=== PATIENT | female | born 1950 | race Caucasian/White ===

== ENCOUNTER → 2017-02-28 | Outpatient (CLI) | payer BC ==
[~2017-02-28] MED LIST: ALIGN; B-12500 MCG PO; CALCIUM600 MG PO; CYMBALTA 60MG60 MG PO; GLUMETZA1000 MG PO; K-99595 MG PO; K-DUR20 MEQ PO; LEVAQUIN 5500 MG/TA1 PO; LEVOXYL0.1 MG PO; LYRICA 150MG C150 MG PO; LYRICA225 MG PO; MAXZIDE-25MG TA1 TAB PO; PREDNISONE20 MG PO; PROTONIX 40MG T40 MG PO; PYRIDIUM200 M1 PO; REQUIP XL4 MG PO; REQUIP4 MG PO; TESSALON PERLE200 MG PO; ZITHROMAX 250M250 MG PO; ZOCOR 40MG40 MG PO
== END ==
LOC: MC.RAD 08:15
DX: Z12.31 Encounter for screening mammogram for malignant neoplasm of breast (principal)

== ENCOUNTER 2017-05-09 09:11 | Inpatient (IN) | payer MEDICARE, OTHER ==
[~2017-05-09] VITALS: Ht 170.2 cm; Wt 95.1 kg
[~2017-05-09 09:11] MED LIST changes: -LEVOXYL0.1 MG PO; +SYNTHROID0.125 MG/T PO
[2017-05-20] MEDS ORDERED: NORCO 325 MG-51 TAB PO (13:06)
[2017-05-20] MEDS ORDERED: VOLTAREN 75 DR75 MG PO (13:06)
[2017-07-01] VITALS (9 sets, daily range): BP systolic 116–152; BP diastolic 63–73; PULSE 68–75; TEMP 97.2–98.2
[2017-07-01] MEDS ORDERED: KLOR-CON M2020 MEQ PO (10:19)
[2017-07-01] MEDS ORDERED: COLESTID 1GM1 G PO (10:23)
[2017-07-01] MEDS ORDERED: NATURE'S BLEND100 M2 PO (10:24)
[2017-07-01] MEDS ORDERED: PROBIOTIC ACID1 EAC3 PO (10:24)
[2017-07-01] MEDS ORDERED: LASIX 20MG TABL20 MG PO (10:25)
[2017-07-01] MEDS ORDERED: NORVASC 5MG5 MG/TAB PO (10:25)
[2017-07-01] MEDS ORDERED: PROFERRIN ES12 MG PO (10:26)
[2017-07-01] MEDS ORDERED: FARXIGA10 PO (10:26)
[2017-07-01] MEDS ORDERED: BASAGLAR K100 UNIT/1 SQ (10:28)
[2017-07-02] VITALS: BP 130/63; BP 159/63; PULSE 66; PULSE 69; TEMP 97.4; TEMP 98.6
[2017-07-02 04:00] VITALS: BP 107/47; PULSE 62; TEMP 98
[2017-07-02 06:47] LABS: BASO % 0.5 % (0.0-2.0); EOS # 0.2 (0.0-0.7); EOS % 2.7 % (0-4.0); GRAN # 6.1 (1.4-6.5); GRAN % 74.3 % (42.2-75.2); HEMATOCRIT 41.2 % (37.0-47.0); HEMOGLOBIN 12.7 g/dl (12.5-16.0); LYMPH # 1.3 (1.2-3.4); LYMPH % 15.3 % (20.0-51.0); MEAN CELL VOLUME 88 fl (80.0-100.0); MEAN CORPUSCULAR HEMOGLOBIN 27 pg (27.0-31.0); MEAN CORPUSCULAR HGB CONC 31 g/dl (33.0-37.0); MEAN PLATELET VOLUME 10.2 fl (7.4-10.4); MONO # 0.6 (0.1-0.6); MONO % 6.8 % (1.7-9.3); PLATELET COUNT 279 K/mm3 (130-400); RED BLOOD COUNT 4.66 M/mm3 (4.10-5.30); REDCELL DISTRIBUTION WIDTH-CV 15.7 % (11.5-14.5)
[2017-07-02 07:06] LABS: CALCIUM 8.6 mg/dL (8.4-10.2); CREATININE, serum 1.31 mg/dL (0.52-1.25)
[2017-07-02 08:28] VITALS: BP 118/67; PULSE 59; TEMP 98.1
[2017-07-02 11:15] VITALS: BP 126/67; PULSE 64; TEMP 97.6
[2017-07-02 15:47] VITALS: BP 112/60; PULSE 74; TEMP 97.6
[2017-07-02 19:21] VITALS: BP 137/64; PULSE 74; TEMP 98.3
[2017-07-03 01:00] VITALS: BP 136/64; PULSE 74; TEMP 98.1
[2017-07-03 05:02] VITALS: BP 116/50; PULSE 76; TEMP 98.3
[2017-07-03 09:29] LABS: CREATININE, serum 1.34 mg/dL (0.52-1.25); POTASSIUM 3.8 mmol/L (3.4-5.0)
[2017-07-03 12:07] VITALS: BP 124/67; PULSE 70; TEMP 98
[2017-07-03 16:44] VITALS: BP 127/69; PULSE 70; TEMP 98.4
== END 2017-07-03 17:53 | disposition home or self-care (01) | DRG 658 ==
LOC: SURG 06-03 09:00 → INPTSU 07-01 09:05 → SURG 07-01 10:00
PROVIDERS: Nurse Practitioner Family; Surgery; Urology
PROC: 8E0W4CZ Robotic Assisted Procedure of Trunk Region, Percutaneous Endoscopic Approach (ICD-10-PCS; 2017-07-01)
PROC: 0TT14ZZ Resection of Left Kidney, Percutaneous Endoscopic Approach (ICD-10-PCS; principal; 2017-07-01 11:00)
PROC: 0WQF4ZZ Repair Abdominal Wall, Percutaneous Endoscopic Approach (ICD-10-PCS; 2017-07-01 11:00)
DX: C64.2 Malignant neoplasm of left kidney, except renal pelvis (principal); K43.2 Incisional hernia without obstruction or gangrene; E11.42 Type 2 diabetes mellitus with diabetic polyneuropathy; I10 Essential (primary) hypertension; K58.0 Irritable bowel syndrome with diarrhea; N28.9 Disorder of kidney and ureter, unspecified; Z79.4 Long term (current) use of insulin; K42.9 Umbilical hernia without obstruction or gangrene
CPT/HCPCS: 99222; 99232-AI; A4314; J0690; J1650; J1815; J2405; J2704; J2710; J2765; J3010; J7030; J7120

== ENCOUNTER 2017-05-20 08:55 | Emergency (ER) | payer MEDICARE, OTHER ==
[~2017-05-20] VITALS: Ht 170.2 cm; Wt 95.5 kg
[~2017-05-20 08:55] MED LIST changes: +LEVOXYL0.1 MG PO; -SYNTHROID0.125 MG/T PO
[2017-05-20 09:00] VITALS: TEMP 97.8
[2017-05-20 09:42] LABS: BASO # 0.1 (0.0-0.2); BASO % 0.7 % (0.0-2.0); EOS # 0.2 (0.0-0.7); EOS % 1.4 % (0-4.0); GRAN # 9.1 (1.4-6.5); GRAN % 80.2 % (42.2-75.2); HEMATOCRIT 44.3 % (37.0-47.0); LYMPH # 1.4 (1.2-3.4); LYMPH % 12.6 % (20.0-51.0); MEAN CELL VOLUME 86 fl (80.0-100.0); MEAN CORPUSCULAR HEMOGLOBIN 27 pg (27.0-31.0); MEAN CORPUSCULAR HGB CONC 32 g/dl (33.0-37.0); MEAN PLATELET VOLUME 10.1 fl (7.4-10.4); MONO # 0.5 (0.1-0.6); MONO % 4.7 % (1.7-9.3); PLATELET COUNT 318 K/mm3 (130-400); RED BLOOD COUNT 5.13 M/mm3 (4.10-5.30); REDCELL DISTRIBUTION WIDTH-CV 15.3 % (11.5-14.5)
[2017-05-20 09:51] LABS: ALANINE AMINOTRANSFERASE 63 U/L (9-52); ALBUMIN 4.8 gm/dL (3.5-5.0); ALKALINE PHOSPHATASE 112 U/L (50-136); ANION GAP 13 mmol/L (7-16); AST,SGOT 46 U/L (15-37); BILIRUBIN,TOTAL 1.5 mg/dL (0.0-1.0); BLOOD UREA NITROGEN 21 mg/dL (7-17); CALCIUM 9.8 mg/dL (8.4-10.2); CARBON DIOXIDE 27 mmol/L (22-30); CHLORIDE 103 mmol/L (98-107); CREATININE, serum 0.85 mg/dL (0.52-1.25); GLUCOSE 136 mg/dL (74-106); SODIUM 144 mmol/L (137-145); TOTAL PROTEIN 7.6 gm/dL (6.4-8.2)
[2017-05-20 10:04] LABS: TROPONIN-I < 0.012 ng/mL (0.000-0.034)
[2017-05-20] MEDS ORDERED: NORCO 325 MG-51 TAB PO (13:06)
[2017-05-20] MEDS ORDERED: VOLTAREN 75 DR75 MG PO (13:06)
[2017-05-20 13:24] VITALS: BP 137/95; PULSE 70
== END 2017-05-20 13:25 | disposition home or self-care (01) ==
LOC: COL.ER 08:55
PROVIDERS: Emergency Medicine
DX: S70.02XA Contusion of left hip, initial encounter (principal); S70.01XA Contusion of right hip, initial encounter; E11.9 Type 2 diabetes mellitus without complications; I10 Essential (primary) hypertension; R42 Dizziness and giddiness; Z87.442 Personal history of urinary calculi; Z79.84 Long term (current) use of oral hypoglycemic drugs; W18.39XA Other fall on same level, initial encounter; Y92.009 Unspecified place in unspecified non-institutional (private) residence as the place of occurrence of the external cause
CPT/HCPCS: J1885; J2765; J3010; J7030

== ENCOUNTER → 2017-06-26 | Outpatient (CLI) | payer MEDICARE, OTHER ==
[~2017-06-26] MED LIST changes: +NORCO 325 MG-51 TAB PO; +VOLTAREN 75 DR75 MG PO
[2017-06-26 11:24] LABS: CALCIUM 9.7 mg/dL (8.4-10.2); CREATININE, serum 0.79 mg/dL (0.52-1.25); POTASSIUM 4.3 mmol/L (3.4-5.0)
[2017-06-26 14:23] LABS: COLLECTION METHOD CLEAN CATCH
[2017-06-26 14:40] LABS: PH 5 (5-8); SQUAMOUS EPITHELIAL 0-2 /hpf; URINE APPEARANCE Hazy; URINE BACTERIA Rare /hpf; URINE BILIRUBIN Negative (NEGATIVE); URINE BLOOD Negative (NEGATIVE); URINE COLOR Yellow; URINE GLUCOSE Negative (NEGATIVE); URINE KETONE Negative (NEGATIVE); URINE LEUKOCYTE ESTERASE Negative (NEGATIVE); URINE NITRATE Negative (NEGATIVE); URINE PROTEIN(semi-quant) Negative (NEGATIVE); URINE RBC None Seen /hpf; URINE UROBILINOGEN Negative (NEGATIVE); URINE WBC 0-2 /hpf
[2017-06-26 22:58] LABS: URINE MICROALBUMIN 3.3 mg/dL (0.0-1.7)
== END ==
LOC: COL.LAB 10:35
PROVIDERS: Internal Medicine
DX: N18.1 Chronic kidney disease, stage 1 (principal); E66.8 Other obesity

== ENCOUNTER → 2018-07-16 | Outpatient (CLI) | payer MEDICARE, OTHER ==
[~2018-07-16] MED LIST changes: +BASAGLAR K100 UNIT/1 SQ; +COLESTID 1GM1 G PO; +FARXIGA10 PO; +KLOR-CON M2020 MEQ PO; +LASIX 20MG TABL20 MG PO; -LEVOXYL0.1 MG PO; +NATURE'S BLEND100 M2 PO; +NORVASC 5MG5 MG/TAB PO; +PROBIOTIC ACID1 EAC3 PO; +PROFERRIN ES12 MG PO; +SYNTHROID0.125 MG/T PO
== END ==
LOC: COL.RAD 11:40
DX: C64.2 Malignant neoplasm of left kidney, except renal pelvis (principal); Z90.5 Acquired absence of kidney

== ENCOUNTER → 2018-08-04 | Outpatient (CLI) | payer MEDICARE, OTHER | LOC: MC.RAD 07:44 | DX: Z12.31 Encounter for screening mammogram for malignant neoplasm of breast (principal); C64.2 Malignant neoplasm of left kidney, except renal pelvis; R93.422 Abnormal radiologic findings on diagnostic imaging of left kidney ==

== ENCOUNTER → 2019-01-15 | Outpatient (CLI) | payer MEDICARE, OTHER | LOC: COL.RAD 09:45 | DX: C64.2 Malignant neoplasm of left kidney, except renal pelvis (principal); Z90.5 Acquired absence of kidney ==

== ENCOUNTER → 2019-08-06 | Outpatient (CLI) | payer MEDICARE, OTHER | LOC: MC.RAD 07:59 | DX: Z12.31 Encounter for screening mammogram for malignant neoplasm of breast (principal); N63.10 Unspecified lump in the right breast, unspecified quadrant ==

== ENCOUNTER → 2021-05-01 | Outpatient (CLI) | payer MEDICARE, OTHER | LOC: MC.RAD 08:45 | DX: Z12.31 Encounter for screening mammogram for malignant neoplasm of breast (principal) ==

== ENCOUNTER → 2022-04-26 | Outpatient (CLI) | payer MEDICARE, OTHER | LOC: COL.RAD 14:29 | DX: R74.01 Elevation of levels of liver transaminase levels (principal); Z85.528 Personal history of other malignant neoplasm of kidney | CPT/HCPCS: Q9967 ==

== ENCOUNTER → 2022-05-14 | Outpatient (CLI) | payer MEDICARE, OTHER | LOC: MC.RAD 07:15 | DX: Z12.31 Encounter for screening mammogram for malignant neoplasm of breast (principal) ==